=== PATIENT | female | born 1990 | race Caucasian/White ===

== ENCOUNTER 2019-11-05 07:56 | Inpatient (IN) | payer OTHER ==
[~2019-11-05] VITALS: Ht 177.8 cm; Wt 62.0 kg
--- NOTE | 2019-11-05 08:56 | NUR ---
SAIL MAKER: PT TO ROOM FROM LOBBY VIA W/C
[2019-11-05] MEDS ORDERED: ONDANSETRON 2MG/ML, 2ML ONE (09:22)
[2019-11-05] MEDS ORDERED: LORazepam 2 MG/ML, 1ML ONE (09:23)
[2019-11-05] MEDS ORDERED: FAMOTIDINE 20 MG/2 ML ONE (09:23)
[2019-11-05] MEDS ORDERED: SODIUM CHLORIDE 0.9% 1,000ML IVBOLUS ONE (09:30)
[2019-11-05] MEDS ORDERED: LORazepam 2 MG/ML, 1ML IVPush ONE ×2 (09:30→11:00)
[2019-11-05] MEDS ORDERED: ONDANSETRON 2MG/ML, 2ML IVPush ONE (09:30)
[2019-11-05] MEDS ORDERED: FAMOTIDINE 20 MG/2 ML IV ONE (09:30)
[2019-11-05 09:43] LABS: ALANINE AMINOTRANSFERASE 120 U/L (12-78); ALBUMIN 3.8 g/dL (3.4-5.0); ANION GAP 13 mmol/L (5-15); CALCIUM 9.5 mg/dL (8.5-10.1); CHLORIDE 90 mmol/L (98-107); CREATININE 0.72 mg/dL (0.55-1.02)
[2019-11-05 09:48] LABS: ALKALINE PHOSPHATASE 111 U/L (45-117); BILIRUBIN,TOTAL 2.3 mg/dL (0.2-1.0); TOTAL PROTEIN 7.9 g/dL (6.4-8.2)
[2019-11-05 10:14] LABS: ACETONE, SERUM Moderate(40mg/dL) mg/dL (Negative)
[2019-11-05] MEDS: POTASSIUM CHLORIDE 20 MEQ, MAGNESIUM SULFATE 1 GM, MVI ADULT 10 ML, THIAMINE 200 MG, FO... IV SCH (10:30)
[2019-11-05 10:48] LABS: MEAN CORPUSCULAR HEMOGLOBIN 35.5 pg (27.0-34.8); MEAN CORPUSCULAR HGB CONC 33.8 g/dL (32.4-35.8); RED BLOOD COUNT 4.12 x10^6/uL (3.82-5.3)
[2019-11-05 11:01] LABS: MEAN PLATELET VOLUME 8.2 fL (7.4-10.4); PLATELET COUNT 44 x10^3/uL (130-400)
[2019-11-05 11:03] LABS: MD YES
[2019-11-05 11:07] LABS: BAND#(MANUAL) 0.74 x10^3/uL; BANDS%(MANUAL) 20 % (0-7); LYMPH#(MANUAL) 0.41 x10^3/uL (1-3.4); LYMPHS% (MANUAL) 11 % (22-44); MONOS% (MANUAL) 8 % (2-9); REACTIVE LYMPHS # (MANUAL) 0.04 x10^3/uL (0-0); REACTIVE LYMPHS % (MANUAL) 1 % (0-0); SEG#(MANUAL) 2.22 x10^3/uL (1.8-6.8); SEGS% (MANUAL) 60 % (42-75)
[2019-11-05 11:08] LABS: <PLATELET ESTIMATE> DECREASED; LARGE PLATELETS 1+
--- NOTE | 2019-11-05 12:09 | NUR ---
PT RESTING IN BED ON CELL PHONE. MOTHER AT BEDSIDE. NAD NOTED. CALL LIGHT IN REACH. IV FLUIDS CONTINUE INFUSING. VITALS DOCUMENTED. PT DENIES ANY FURTHER NEEDS OR CONCERNS AT THIS TIME.
[2019-11-05] MEDS ORDERED: MAGNESIUM SULFATE IV SCH (13:00)
[2019-11-05] MEDS ORDERED: ONDANSETRON 2MG/ML, 2ML IV PRN (13:00)
[2019-11-05] MEDS ORDERED: POTASSIUM CHLORIDE IV SCH (13:00)
[2019-11-05] MEDS ORDERED: ALUMINUM/MAG/SIMETHICONE 30 ML UDC PO PRN (13:00)
[2019-11-05] MEDS ORDERED: FOLIC ACID IV SCH (13:00)
[2019-11-05] MEDS ORDERED: ACETAMINOPHEN 325 MG TABLET PO PRN (13:00)
[2019-11-05] MEDS ORDERED: [UNRECOGNIZED DRUG - OTHER] IV SCH (13:00)
[2019-11-05] MEDS ORDERED: THIAMINE IV SCH (13:00)
[2019-11-05] MEDS ORDERED: LORazepam 2 MG/ML, 1ML IV PRN ×2 (13:00)
[2019-11-05 13:12] LABS: INTERNATIONAL NORMALIZED RATIO 0.98 (0.93-1.1); PROTHROMBIN TIME 10.3 Seconds (9.6-11.5)
--- NOTE | 2019-11-05 14:14 | NUR ---
REPORT TO SHEREEN BEAN RN. PT UPDATED ON PLAN OF CARE. REMINDED TO KEEP ARM STRAIGHT FOR FULL INFUSION OF HER FLUIDS AND ELECTROLYTES. PT VERBALIZES UNDERSTANDING. DENIES ANY NEEDS AT THIS TIME. CALL LIGHT IN REACH. AWAITING TRANSPORT.
[2019-11-05 15:34] VITALS: BP 134/89
[2019-11-05] MEDS: PANTOPRAZOLE 40 MG IV IVPush SCH (17:44)
[2019-11-05] MEDS: POTASSIUM CHLORIDE 20 MEQ TAB.ER.PRT PO SCH (17:44)
[2019-11-05] MEDS: SODIUM CHLORIDE 0.9% 1,000 ML IV SCH (18:40)
[2019-11-05 20:00] VITALS: BP 134/79
[2019-11-05] MEDS ORDERED: LORazepam 1MG TABLET ONE (20:01)
[2019-11-05] MEDS: LORazepam 2 MG/ML, 1ML IV PRN (20:56)
[2019-11-05 21:37] LABS: MICROSCOPIC INDICATED
[2019-11-05 21:46] LABS: CULTURE INDICATED? YES
[2019-11-06 01:16] VITALS: BP 128/83
[2019-11-06] MEDS: LORazepam 2 MG/ML, 1ML IV PRN ×6 (02:11→15:36)
[2019-11-06] MEDS: SODIUM CHLORIDE 0.9% 1,000 ML IV SCH ×3 (04:14→20:11)
[2019-11-06 05:40] LABS: MEAN CORPUSCULAR HEMOGLOBIN 35.7 pg (27.0-34.8); MEAN CORPUSCULAR HGB CONC 33.8 g/dL (32.4-35.8); MEAN CORPUSCULAR VOLUME 105.4 fL (80-100); MEAN PLATELET VOLUME 8.9 fL (7.4-10.4); RED BLOOD COUNT 3.68 x10^6/uL (3.82-5.3); RED CELL DISTRIBUTION WIDTH 11.9 % (9.6-15.2)
[2019-11-06 05:43] LABS: PLATELET COUNT 45 x10^3/uL (130-400)
[2019-11-06 05:46] LABS: ALBUMIN 3.7 g/dL (3.4-5.0); ANION GAP 8 mmol/L (5-15); CALCIUM 8.8 mg/dL (8.5-10.1); CHLORIDE 102 mmol/L (98-107)
[2019-11-06] MEDS: PANTOPRAZOLE 40 MG IV IVPush SCH (05:48)
[2019-11-06 05:52] LABS: ALANINE AMINOTRANSFERASE 101 U/L (12-78); ALKALINE PHOSPHATASE 98 U/L (45-117); BILIRUBIN,TOTAL 2.5 mg/dL (0.2-1.0); CREATININE 0.62 mg/dL (0.55-1.02); TOTAL PROTEIN 7.3 g/dL (6.4-8.2)
[2019-11-06 06:27] LABS: BASOPHILS # (AUTO) 0.02 x10^3/uL (0-0.1); BASOPHILS % (AUTO) 1 % (0-1); EOSINOPHILS # (AUTO) 0.08 x10^3/uL (0-0.4); EOSINOPHILS % (AUTO) 2 % (1-7); LYMPHOCYTES # (AUTO) 1.14 x10^3/uL (1-3.4); LYMPHOCYTES % (AUTO) 25 % (22-44); MD SCAN; MONOCYTES # (AUTO) 0.47 x10^3/uL (0.2-0.8); MONOCYTES % (AUTO) 10 % (2-9); NEUTROPHILS # (AUTO) 2.84 x10^3/uL (1.8-6.8); NEUTROPHILS % (AUTO) 62 % (42-75)
[2019-11-06] MEDS: POTASSIUM CHLORIDE 20 MEQ TAB.ER.PRT PO SCH ×3 (08:00→17:49)
[2019-11-06] MEDS ORDERED: POTASSIUM CHLORIDE 20 MEQ in SODIUM CHLORIDE 0.9% 250 ML IV ONE (09:00)
[2019-11-06] MEDS ORDERED: LORazepam 0.5MG TABLET PO PRN (09:00)
[2019-11-06] MEDS ORDERED: LORazepam 1MG TABLET PO PRN ×2 (09:00)
[2019-11-06] MEDS ORDERED: ERGOCALCIFEROL 50,000 UNIT CAPSULE PO SCH (09:00)
[2019-11-06 09:48] VITALS: BP 169/113
[2019-11-06 10:55] VITALS: BP 150/100
[2019-11-06] MEDS ORDERED: POTASSIUM PHOSPHATE 22 MEQ in SODIUM CHLORIDE 0.9% 250 ML IV ONE (11:00)
[2019-11-06] MEDS: POTASSIUM CHLORIDE 20 MEQ, MAGNESIUM SULFATE 1 GM, MVI ADULT 10 ML, THIAMINE 200 MG, FO... IV SCH (12:19)
[2019-11-06] MEDS ORDERED: CHLORDIAZEPOXIDE 25 MG CAPSULE PO SCH ×2 (14:30→16:00)
[2019-11-06 15:55] VITALS: BP 147/108
[2019-11-06] MEDS ORDERED: PHENOBARBITAL ETOH DETOX PER PHARMACY MC PRN (16:30)
[2019-11-06] MEDS ORDERED: PHENOBARBITAL SODIUM IV ONE ×2 (17:00→20:30)
[2019-11-06] MEDS ORDERED: SODIUM CHLORIDE 0.9% IV ONE ×2 (17:00→20:30)
[2019-11-07] MEDS: SODIUM CHLORIDE 0.9% 1,000 ML IV SCH (04:06)
[2019-11-07] MEDS: PHENOBARBITAL SODIUM 65 MG/ML, 1ML IM SCH ×2 (04:07→16:00)
[2019-11-07 04:56] LABS: MEAN CORPUSCULAR HEMOGLOBIN 35.1 pg (27.0-34.8); MEAN CORPUSCULAR HGB CONC 33.2 g/dL (32.4-35.8); MEAN CORPUSCULAR VOLUME 105.9 fL (80-100); RED BLOOD COUNT 3.17 x10^6/uL (3.82-5.3)
[2019-11-07 05:03] LABS: ALBUMIN 3.1 g/dL (3.4-5.0); ANION GAP 10 mmol/L (5-15); CALCIUM 8.5 mg/dL (8.5-10.1); CHLORIDE 108 mmol/L (98-107)
[2019-11-07 05:07] LABS: ALANINE AMINOTRANSFERASE 74 U/L (12-78); ALKALINE PHOSPHATASE 73 U/L (45-117); BILIRUBIN,TOTAL 1.8 mg/dL (0.2-1.0); CREATININE 0.41 mg/dL (0.55-1.02); TOTAL PROTEIN 6.4 g/dL (6.4-8.2)
[2019-11-07 05:52] LABS: PLATELET COUNT 44 x10^3/uL (130-400)
[2019-11-07 05:53] LABS: BASOPHILS # (AUTO) 0.01 x10^3/uL (0-0.1); BASOPHILS % (AUTO) 0 % (0-1); EOSINOPHILS # (AUTO) 0.17 x10^3/uL (0-0.4); EOSINOPHILS % (AUTO) 4 % (1-7); LYMPHOCYTES % (AUTO) 25 % (22-44); MD SCAN; MONOCYTES # (AUTO) 0.53 x10^3/uL (0.2-0.8); MONOCYTES % (AUTO) 12 % (2-9); NEUTROPHILS # (AUTO) 2.65 x10^3/uL (1.8-6.8); NEUTROPHILS % (AUTO) 59 % (42-75)
[2019-11-07] MEDS ORDERED: POTASSIUM CHLORIDE 20 MEQ in SODIUM CHLORIDE 0.9% 250 ML IV ONE (06:30)
[2019-11-07] MEDS: POTASSIUM CHLORIDE 20 MEQ TAB.ER.PRT PO SCH (08:00)
[2019-11-07] MEDS ORDERED: D5%-0.45NACL+KCL 20MEQ 1,000 ML IV SCH (08:30)
[2019-11-07] MEDS: PANTOPRAZOLE 40 MG IV IVPush SCH (09:27)
[2019-11-07 18:42] VITALS: BP 133/90
[2019-11-07] MEDS: PHENOBARBITAL 20 MG/5 ML ORAL SOL PO SCH (21:39)
[2019-11-07] MEDS: D5%-0.45NACL+KCL 20MEQ 1,000 ML IV SCH (21:40)
[2019-11-08 02:01] VITALS: BP 130/84
[2019-11-08 05:22] LABS: MEAN CORPUSCULAR HEMOGLOBIN 35.1 pg (27.0-34.8); MEAN CORPUSCULAR HGB CONC 33.1 g/dL (32.4-35.8); MEAN CORPUSCULAR VOLUME 106.1 fL (80-100); MEAN PLATELET VOLUME 9.6 fL (7.4-10.4); PLATELET COUNT 61 x10^3/uL (130-400); RED BLOOD COUNT 3.27 x10^6/uL (3.82-5.3); RED CELL DISTRIBUTION WIDTH 11.9 % (9.6-15.2)
[2019-11-08 05:28] LABS: CHLORIDE 108 mmol/L (98-107)
[2019-11-08 05:31] LABS: ANION GAP 8 mmol/L (5-15); CALCIUM 8.6 mg/dL (8.5-10.1); CREATININE 0.42 mg/dL (0.55-1.02)
[2019-11-08 06:18] LABS: BASOPHILS # (AUTO) 0.04 x10^3/uL (0-0.1); BASOPHILS % (AUTO) 1 % (0-1); EOSINOPHILS % (AUTO) 4 % (1-7); LYMPHOCYTES # (AUTO) 1.46 x10^3/uL (1-3.4); LYMPHOCYTES % (AUTO) 32 % (22-44); MD SCAN; MONOCYTES # (AUTO) 0.61 x10^3/uL (0.2-0.8); MONOCYTES % (AUTO) 13 % (2-9); NEUTROPHILS # (AUTO) 2.24 x10^3/uL (1.8-6.8); NEUTROPHILS % (AUTO) 49 % (42-75)
[2019-11-08] MEDS ORDERED: POTASSIUM CHLORIDE 20 MEQ TAB.ER.PRT PO ONE (06:30)
[2019-11-08 07:28] VITALS: BP 125/84
[2019-11-08] MEDS: PHENOBARBITAL 20 MG/5 ML ORAL SOL PO SCH (09:00)
[2019-11-08] MEDS ORDERED: THIAMINE 200 MG in SODIUM CHLORIDE 0.9% 50 ML IV SCH (09:00)
[2019-11-08] MEDS: PANTOPRAZOLE 40 MG IV IVPush SCH (09:23)
[2019-11-08 13:17] VITALS: BP 116/68
[2019-11-08] MEDS: D5%-0.45NACL+KCL 20MEQ 1,000 ML IV SCH (17:15)
[2019-11-08 20:14] VITALS: BP 131/82
[2019-11-09 00:33] VITALS: BP 144/96
[2019-11-09] MEDS ORDERED: PHENOBARBITAL 20 MG/5 ML ORAL SOL PO SCH (04:00)
[2019-11-09 06:29] LABS: BASOPHILS # (AUTO) 0.04 x10^3/uL (0-0.1); BASOPHILS % (AUTO) 1 % (0-1); EOSINOPHILS # (AUTO) 0.14 x10^3/uL (0-0.4); EOSINOPHILS % (AUTO) 3 % (1-7); LYMPHOCYTES # (AUTO) 1.26 x10^3/uL (1-3.4); LYMPHOCYTES % (AUTO) 27 % (22-44); MD NO; MEAN CORPUSCULAR HEMOGLOBIN 35.4 pg (27.0-34.8); MEAN CORPUSCULAR HGB CONC 33.5 g/dL (32.4-35.8); MEAN CORPUSCULAR VOLUME 105.7 fL (80-100); MEAN PLATELET VOLUME 9.2 fL (7.4-10.4); MONOCYTES # (AUTO) 0.92 x10^3/uL (0.2-0.8); MONOCYTES % (AUTO) 20 % (2-9); NEUTROPHILS # (AUTO) 2.27 x10^3/uL (1.8-6.8); NEUTROPHILS % (AUTO) 49 % (42-75); PLATELET COUNT 103 x10^3/uL (130-400); RED BLOOD COUNT 3.35 x10^6/uL (3.82-5.3); RED CELL DISTRIBUTION WIDTH 12.1 % (9.6-15.2)
[2019-11-09 06:32] LABS: ALBUMIN 3.4 g/dL (3.4-5.0); ANION GAP 6 mmol/L (5-15); CALCIUM 9.3 mg/dL (8.5-10.1); CHLORIDE 110 mmol/L (98-107)
[2019-11-09 06:37] LABS: ALANINE AMINOTRANSFERASE 62 U/L (12-78); ALKALINE PHOSPHATASE 72 U/L (45-117); BILIRUBIN,TOTAL 0.9 mg/dL (0.2-1.0); CREATININE 0.41 mg/dL (0.55-1.02); TOTAL PROTEIN 6.9 g/dL (6.4-8.2)
[2019-11-09 06:45] VITALS: BP 124/84
[2019-11-09] MEDS ORDERED: PANTOPROZOLE 40MG TABLET PO SCH (07:37)
[2019-11-09] MEDS ORDERED: THIAMINE 100MG TABLET PO SCH (09:00)
[2019-11-11] MEDS ORDERED: PHENOBARBITAL 20 MG/5 ML ORAL SOL PO SCH (04:00)
[2019-11-12] MEDS ORDERED: PHENOBARBITAL 20 MG/5 ML ORAL SOL PO SCH (04:00)
== END 2019-11-09 10:58 | disposition home or self-care (01) | DRG 433 ==
LOC: ED 10:52 → EDIP 12:03 → 4WST 14:49 → CCU 11-06 17:00 → 3N 11-07 17:24 → DCLOUNGE 11-09 10:43
PROVIDERS: ADMIT Emergency Medicine; ATTEND Family Medicine
DX: K70.10 Alcoholic hepatitis without ascites (principal); F10.231 Alcohol dependence with withdrawal delirium; E87.1 Hypo-osmolality and hyponatremia; G93.40 Encephalopathy, unspecified; E87.2 Acidosis; K29.20 Alcoholic gastritis without bleeding; D69.59 Other secondary thrombocytopenia; D72.825 Bandemia; D75.89 Other specified diseases of blood and blood-forming organs; E16.2 Hypoglycemia, unspecified; E55.9 Vitamin D deficiency, unspecified; E86.0 Dehydration; E87.6 Hypokalemia; F32.9 Major depressive disorder, single episode, unspecified; I10 Essential (primary) hypertension
CPT/HCPCS: 36415; 96374; 96375; 99285; J3490; 71045; 76700; 80048; 80053; 80074; 80307; 81001; 82010; 82140; 82306; 82607; 82962; 83690; 83735; 84100; 84703; 85025; 85610; 87040; 87081; 87086; G0378; J2405; J2560; J3411; J3475; J3480; C9113; J2060; J7030; J7050

== ENCOUNTER 2020-01-12 10:59 | Emergency (ER) | payer OTHER ==
[~2020-01-12] VITALS: Ht 177.8 cm; Wt 63.4 kg
--- NOTE | 2020-01-12 11:20 | NUR ---
Late Entry: pt resting in gurney, changed into gown, denies additional needs at this time, belongings bagged and placed in storage, pt ambulated to restroom, urine collected, SI room in use, AKHIL, ARTIE.
--- NOTE | 2020-01-12 11:41 | NUR ---
pt resting in [place], denies additional needs at this time, security taking valuables (phone and keys) to safe, NAD, WCTM.
[2020-01-12 11:53] LABS: BASOPHILS # (AUTO) 0.03 x10^3/uL (0-0.1); BASOPHILS % (AUTO) 1 % (0-1); EOSINOPHILS # (AUTO) 0.05 x10^3/uL (0-0.4); EOSINOPHILS % (AUTO) 1 % (1-7); LYMPHOCYTES # (AUTO) 2.11 x10^3/uL (1-3.4); LYMPHOCYTES % (AUTO) 40 % (22-44); MD NO; MEAN CORPUSCULAR HEMOGLOBIN 33.9 pg (27.0-34.8); MEAN CORPUSCULAR HGB CONC 33.4 g/dL (32.4-35.8); MEAN CORPUSCULAR VOLUME 101.6 fL (80-100); MEAN PLATELET VOLUME 7.1 fL (7.4-10.4); MONOCYTES # (AUTO) 0.31 x10^3/uL (0.2-0.8); MONOCYTES % (AUTO) 6 % (2-9); NEUTROPHILS # (AUTO) 2.79 x10^3/uL (1.8-6.8); NEUTROPHILS % (AUTO) 53 % (42-75); PLATELET COUNT 303 x10^3/uL (130-400); RED BLOOD COUNT 4.67 x10^6/uL (3.82-5.3); RED CELL DISTRIBUTION WIDTH 13.1 % (9.6-15.2)
[2020-01-12 12:00] LABS: AMPHETAMINE SCREEN, URINE Negative (Negative); BARBITURATE SCREEN, URINE Negative (Negative); BENZODIAZEPINE SCREEN, URINE Negative (Negative); CANNABINOID SCREEN, URINE Negative (Negative); COCAINE SCREEN, URINE Negative (Negative); METHADONE SCREEN, URINE Negative (Negative); OPIATE SCREEN, URINE Negative (Negative)
[2020-01-12 12:11] LABS: ALBUMIN 3.8 g/dL (3.4-5.0); ANION GAP 11 mmol/L (5-15); CALCIUM 8.5 mg/dL (8.5-10.1); CHLORIDE 105 mmol/L (98-107); SALICYLATE LEVEL < 1.7 mg/dL (2.8-20.0)
--- NOTE | 2020-01-12 12:41 | NUR ---
Pt's friend, Carmen, called per pt's request to request friend to bring pt's glasses to her. Pt resting in bed, NAD, meal tray delivered, pt requsting vegetarian meal tray. Sitter at doorway, room suicide secured, pt resting in bed, no other needs at this time, awaiting labs & psych eval. WCTM.
[2020-01-12 13:00] LABS: CREATININE 0.52 mg/dL (0.55-1.02)
[2020-01-12] MEDS ORDERED: hydrOXyzine 50MG TABLET ONE (13:41)
--- NOTE | 2020-01-12 13:59 | NUR ---
pt friend at bedside, pt given lunch meal tray, NAD, denies additional needs at this time, unlabored and even respirations, WCTM. Sitter at door.
--- NOTE | 2020-01-12 14:43 | NUR ---
Pt resting in bed in suicide secured room, NAD, no needs at this time, sitter at doorway, TM.
--- NOTE | 2020-01-12 15:38 | NUR ---
Pt's friend, Carmen, stated privately to RN that she is very concerned about pt's mental health and does not think the pt will be honest when she is assessed by psychiatric practitioner. Pt's friend states that the pt has made multiple comments about being suicidal in the recent past. Pt's friend's contact info: , Carmen states she can be contacted on this phone number if any further information in needed from her. Pt moved to hospital bed in suicide secured room, sitter at doorway in full view of pt, pt given toothbrush & water for comfort, no other needs at this time, WCTM.
--- NOTE | 2020-01-12 16:57 | NUR ---
Pt in hospital bed in suicide secured room, friend at bedside, sitter at doorway in full view of pt, dinner meal tray ordered, no other needs at this time, WCTM.
[2020-01-12] MEDS ORDERED: LORazepam 1MG TABLET PO ONE (17:00)
[2020-01-12] MEDS ORDERED: THIAMINE 100MG TABLET PO ONE (17:00)
[2020-01-12] MEDS ORDERED: THIAMINE 100MG TABLET ONE (17:09)
--- NOTE | 2020-01-12 17:55 | NUR ---
Pt resting in hospital bed, call light within reach, denies additional needs, even and unlabored respirations, NAD, WCTM.
--- NOTE | 2020-01-12 18:50 | NUR ---
pt resting in hospital bed, NAD, denies additional needs, unlabored and even respirations, bedside report to [facility], pt care transferred at this time.
--- NOTE | 2020-01-12 18:58 | NUR ---
Assumed care of pt at this time. Pt awake and resting on gurney. Pt remains in view of sitter.
--- NOTE | 2020-01-12 19:15 | NUR ---
Pt given ice water. Pt asking about next dose of ativan, even though pt has not received ativan during her stay.
[2020-01-12 22:29] VITALS: BP 128/55
--- NOTE | 2020-01-12 22:30 | NUR ---
Spoke with pt alexander SI reassessment. Pt reports no SI/no plan. Pt reports she has depression and got drunk which made the depression worse. Pt reports she called the SI help line for advice and they called [employer]. CORTES at bedside. Addendum: 01/12/20 at 2246 by MRICH denies*
--- NOTE | 2020-01-12 22:46 | NUR ---
PIV removed. Pt given belongings. Pt's friend Carmen to come get pt now.
--- NOTE | 2020-01-12 23:10 | NUR ---
Pt d/c'd to self care. Pt alert, oriented and ambulatory at time of d/c. Pt educated on mental health care follow-up, S/Sx to return, OTC meds, home care and follow-up. PT VU. Pt ambulatory out of ER.
== END 2020-01-12 23:29 | disposition home or self-care (01) ==
LOC: ED 21:45
DX: F32.9 Major depressive disorder, single episode, unspecified (principal); F10.220 Alcohol dependence with intoxication, uncomplicated; R45.851 Suicidal ideations; Y90.0 Blood alcohol level of less than 20 mg/100 ml
CPT/HCPCS: 36415; 80048; 80307; 82040; 84703; 85025; 99284; Q0177